=== PATIENT | male | born 1980 | race Caucasian/White ===

== ENCOUNTER 2019-01-28 09:42 | Emergency (ER) | payer SELFPAY ==
[2019-01-28] MEDS ORDERED: Albuterol/Ipratropium 3.0-0.5 MG/3 ML Neb Soln NEB ONE (10:22)
[2019-01-28 10:25] LABS: CHLORIDE,CL 97 mEq/L (98-106); SODIUM,NA 135 mEq/L (136-145)
[2019-01-28] MEDS ORDERED: LORazepam 2 MG/ML Syringe IVPUSH ONE (10:38)
--- NOTE | 2019-01-28 10:38 | EDM.PDOC ---
ED HPI GENERAL MEDICAL PROBLEM - General Chief Complaint: Chest Pain Stated Complaint: CP Time Seen by Provider: 01/28/19 10:06 Source of Information: Reports: Patient History Limitations: Reports: No Limitations - History of Present Illness INITIAL COMMENTS - FREE TEXT/NARRATIVE: This patient is a 38 year old male that presents to the ER. Patient reports that about 1 week ago he began feeling short of breath, so he used his friends inhaler once and it seemed to help that day. Patient reports that yesterday afternoon about 2 pm he was outside mowing grass when he started having chest pain left chest. Patient described it as he feels his heart beating at his rib. He reports the sensation is in his left arm as numbness to the elbow. Patient reports he also continues to feel short of breath. The patient reports that he does drink beer daily. He reports that yesterday he drank a 6 pack of beer while mowing. Patient reports that his amount fluctuates on how much he drinks daily. He said sometimes he gets a little crazy and drinks a lot more. He reports that a good average number of beers he drinks a day is about 15-20 per day. The patient reports that since yesterday he has been a little sweaty. He reports that he generally just does not feel very well. Patient reports today he has been shaky as well and having "[place]". Patient denies grady, dizziness , n, v, d, f. Onset Date: 01/21/19 Duration: Week(s): (1) Location: Reports: Chest Quality: Reports: Other ("feel heart beating") Severity: Mild Improves with: Reports: None Worsens with: Reports: None Associated Symptoms: Reports: Chest Pain, Diaphoresis, Shortness of Breath. Denies: Confusion, Cough, cough w sputum, Fever/Chills, Headaches, Loss of Appetite, Malaise, Nausea/Vomiting, Rash, Seizure, Syncope, Weakness Left Chest Pain Score (Numeric/FACES): 2 - Related Data Allergies Allergy/AdvReac Type Severity Reaction Status Date / Time No Known Allergies Allergy Verified 01/28/19 10:05 Home Meds: Home Meds . [No Known Home Meds] 04/16/14 [History] Past Medical History Oncologic (Cancer) History: Reports: Other (See Below) Other Oncologic History: reports "skin cancer spot" was removed around 2017 - Past Surgical History Musculoskeletal Surgical History: Reports: Other (See Below) Other Musculoskeletal Surgeries/Procedures:: hx fractured ankle Social & Family History - Family History Family Medical History: Noncontributory - Tobacco Use Smoking Status *Q: Current Every Day Smoker Years of Tobacco use: 20 Packs/Tins Daily: 1 - Caffeine Use Caffeine Use: Reports: Coffee - Alcohol Use Days Per Week of Alcohol Use: 7 Number of Drinks Per Day: 15 Total Drinks Per Week: 105 - Recreational Drug Use Recreational Drug Use: Yes Recreational Drug Type: Reports: Marijuana/Hashish Recreational Drug Use Frequency: Weekly ED ROS GENERAL - Review of Systems Review Of Systems: See Below Constitutional: Reports: Malaise, Weakness (generalized), Diaphoresis HEENT: Reports: No Symptoms Respiratory: Reports: Shortness of Breath, Wheezing (patient reports he has had some wheezing the past 1 week. ) Cardiovascular: Reports: Chest Pain, Dyspnea on Exertion, Palpitations ("feel my heart beating"). Denies: Lightheadedness, Syncope Endocrine: Reports: No Symptoms GI/Abdominal: Reports: Abdominal Pain ("for years" no changes. chronic. ). Denies: Constipation, Diarrhea, Nausea, Vomiting : Reports: No Symptoms Musculoskeletal: Reports: No Symptoms Skin: Reports: No Symptoms Neurological: Reports: Tremors, Weakness (generalized, no focal. ). Denies: Confusion, Dizziness, Headache, Seizure, Syncope, Change in Speech, Gait Disturbance Psychiatric: Reports: Anxiety Hematologic/Lymphatic: Reports: No Symptoms Immunologic: Reports: No Symptoms ED EXAM, GENERAL - Physical Exam Exam: See Below Exam Limited By: No Limitations General Appearance: Alert, WD/WN, No Apparent Distress, Anxious Eye Exam: Bilateral Eye: EOMI, Normal Inspection, PERRL Ears: Normal External Exam, Normal Canal, Hearing Grossly Normal, Normal TMs Ear Exam: Bilateral Ear: Auricle Normal, Canal Normal, TM normal Nose: Normal Inspection, Normal Mucosa, No Blood Throat/Mouth: Normal Inspection, Normal Lips, Normal Teeth, Normal Gums, Normal Oropharynx, Normal Voice, No Airway Compromise Head: Atraumatic, Normocephalic Neck: Normal Inspection, Supple, Non-Tender, Full Range of Motion Respiratory/Chest: No Respiratory Distress, Normal Breath Sounds, No Accessory Muscle Use, Chest Non-Tender, Wheezing (mild expiratory wheeze throughout. ) Cardiovascular: Normal Peripheral Pulses, Regular Rate, Rhythm, No Edema, No Gallop, No JVD, No Murmur, No Rub Peripheral Pulses: 2+: Radial (L), Radial (R), Posterior Tibial (L), Posterior Tibial (R) GI/Abdominal: Normal Bowel Sounds, Soft, No Organomegaly, No Distention, No Abnormal Bruit, No Mass, Pelvis Stable, Tender (mild diffuse. Patient states this is been present for years, no changes. ) (Male) Exam: Deferred Rectal (Males) Exam: Deferred Back Exam: Normal Inspection, Full Range of Motion. No: CVA Tenderness (L), CVA Tenderness (R) Extremities: Normal Inspection, Normal Range of Motion, Non-Tender, No Pedal Edema, Normal Capillary Refill Neurological: Alert, Oriented Psychiatric: Normal Affect, Normal Mood Skin Exam: Warm, Dry, Intact, Normal Color, No Rash Lymphatic: No Adenopathy EKG INTERPRETATION EKG Date: 01/28/19 Time: 09:50 Rhythm: NSR ST-T: Depressed (minimal) Course - Vital Signs Last Recorded V/S: Last Vital Signs Temp 98.2 F 01/28/19 12:30 Pulse 87 01/28/19 12:30 Resp 18 01/28/19 12:30 BP 112/64 01/28/19 12:30 Pulse Ox 96 01/28/19 12:30 - Orders/Labs/Meds Orders: Active Orders 24 hr Category Date Time Status RT Aerosol Therapy [RC] ASDIRECTED Care 01/28/19 10:22 Active Ang Chest [CT] Stat Exams 01/28/19 11:02 Taken Chest 2V [CR] Routine Exams 01/28/19 Taken MVI, Adult with Vitamin K [Infuvite Adult] 10 ml Med 01/28/19 10:59 Active Folic Acid 1 mg Thiamine [Vitamin B-1] 100 mg Magnesium Sulfate [Magnesium Sulfate 50%] 2 gm Dextrose 5 %-0.2 % NaCl 1,000 ml IV ONETIME Medication Orders Multivitamins/Minerals 10 ml/Folic Acid 1 mg/ Thiamine HCl 100 mg/ Magnesium Sulfate 2 gm / Dextrose/Sodium Chloride 1,015.2 mls @ 500 mls/hr IV ONETIME ONE Stop: 01/28/19 12:59 Last Admin: 01/28/19 10:56 Dose: 500 mls/hr Labs: Laboratory Tests 01/28/19 01/28/19 01/28/19 Range/Units 10:03 10:03 10:03 WBC 6.1 (5.0-10.0) 10^3/uL RBC 4.84 (4.50-6.00) 10^6/uL Hgb 17.0 (14.0-18.0) g/dL Hct 48.2 (40.0-54.0) % MCV 99.6 H (82.0-94.0) fL MCH 35.1 H (27.0-32.0) pg MCHC 35.3 (33.0-38.0) g/dL RDW Coeff of Marily 12.5 (11.0-15.0) % Plt Count 213 (150-400) 10^3/uL Neut % (Auto) 71.2 (35-85) % Lymph % (Auto) 18.6 (10-55) % [place] % (Auto) 9.4 (0-16) % Eos % (Auto) 0.5 (0-5) % Baso % (Auto) 0.3 (0-3) % Neut # (Auto) 4.32 (1.80-7.00) 10^3/uL Lymph # (Auto) 1.13 (1.00-4.80) 10^3/uL [place] # (Auto) 0.57 (0.00-0.80) 10^3/uL Eos # (Auto) 0.03 (0.00-0.45) 10^3/uL Baso # (Auto) 0.02 10^3/uL PT 9.4 L (9.7-12.3) SEC INR 0.91 L (0.92-1.18) APTT 26.6 (23.2-32.3) SEC D-Dimer, Quantitative (0.00-0.50) Sodium 135 L (136-145) mEq/L Potassium 4.0 (3.5-5.0) mEq/L Chloride 97 L (98-106) mEq/L Carbon Dioxide 22 (21-32) mmol/L BUN 13 (7-18) mg/dL Creatinine 1.0 (0.7-1.3) mg/dL Est Cr Clr Drug Dosing 108.86 mL/min Estimated GFR (MDRD) > 60 (>=60) mL/min Glucose 161 H D (75-99) mg/dL Calcium 9.6 (8.4-10.1) mg/dL Total Bilirubin 3.1 H (0.0-1.0) mg/dL AST 56 H (15-37) U/L ALT 138 H (12-78) U/L Alkaline Phosphatase 92 (46-116) U/L Lactate Dehydrogenase 146 (100-190) U/L Creatine Kinase 109 (35-232) U/L Troponin I < 0.017 (0.00-0.06) ng/mL NT-Pro-B Natriuret Pep (0-1000) pg/mL Total Protein 7.8 (6.4-8.2) g/dL Albumin 4.0 (3.4-5.0) g/dL 01/28/19 01/28/19 01/28/19 Range/Units 10:28 10:30 12:11 WBC (5.0-10.0) 10^3/uL RBC (4.50-6.00) 10^6/uL Hgb (14.0-18.0) g/dL Hct (40.0-54.0) % MCV (82.0-94.0) fL MCH (27.0-32.0) pg MCHC (33.0-38.0) g/dL RDW Coeff of Marily (11.0-15.0) % Plt Count (150-400) 10^3/uL Neut % (Auto) (35-85) % Lymph % (Auto) (10-55) % [place] % (Auto) (0-16) % Eos % (Auto) (0-5) % Baso % (Auto) (0-3) % Neut # (Auto) (1.80-7.00) 10^3/uL Lymph # (Auto) (1.00-4.80) 10^3/uL [place] # (Auto) (0.00-0.80) 10^3/uL Eos # (Auto) (0.00-0.45) 10^3/uL Baso # (Auto) 10^3/uL PT (9.7-12.3) SEC INR (0.92-1.18) APTT (23.2-32.3) SEC D-Dimer, Quantitative 0.73 H (0.00-0.50) Sodium (136-145) mEq/L Potassium (3.5-5.0) mEq/L Chloride (98-106) mEq/L Carbon Dioxide (21-32) mmol/L BUN (7-18) mg/dL Creatinine (0.7-1.3) mg/dL Est Cr Clr Drug Dosing mL/min Estimated GFR (MDRD) (>=60) mL/min Glucose (75-99) mg/dL Calcium (8.4-10.1) mg/dL Total Bilirubin (0.0-1.0) mg/dL AST (15-37) U/L ALT (12-78) U/L Alkaline Phosphatase (46-116) U/L Lactate Dehydrogenase (100-190) U/L Creatine Kinase (35-232) U/L Troponin I < 0.017 (0.00-0.06) ng/mL NT-Pro-B Natriuret Pep 63 (0-1000) pg/mL Total Protein (6.4-8.2) g/dL Albumin (3.4-5.0) g/dL Meds: Medications Generic Name Dose Route Start Last Admin Trade Name Freq PRN Reason Stop Dose Admin Multivitamins/Minerals 10 ml/ 1,015.2 mls @ 500 mls/hr 01/28/19 10:59 10:56 Folic Acid 1 mg/ Thiamine HCl IV 01/28/19 12:59 500 mls/hr 100 mg/ Magnesium Sulfate 2 gm ONETIME ONE Administration / Dextrose/Sodium Chloride Discontinued Medications Generic Name Dose Route Start Last Admin Trade Name Freq PRN Reason Stop Dose Admin Albuterol/Ipratropium 3 ml 01/28/19 10:22 01/28/19 10:22 Duoneb 3.0-0.5 Mg/3 Ml NEB 01/28/19 10:23 3 ml ONETIME ONE Administration Multivitamins/Minerals 10 ml/ 1,015.2 mls @ 500 mls/hr 01/28/19 10:38 12:28 Folic Acid 1 mg/ Thiamine HCl IV 01/28/19 12:39 Not Given 100 mg/ Magnesium Sulfate 2 gm ONETIME ONE / Sodium Chloride Iopamidol 100 ml 01/28/19 11:08 01/28/19 11:42 Isovue-370 (76%) IVPUSH 01/28/19 11:09 100 ml ONETIME ONE Administration Lorazepam 1 mg 01/28/19 10:38 01/28/19 10:46 Ativan IVPUSH 01/28/19 10:39 1 mg ONETIME ONE Administration - Radiology Interpretation Free Text/Narrative:: CXR: COPD, no infiltrates, no cardiac enlargement CT angio chest: Lungs clear with hyperinflation. No PEs. Liver possible fatty liver with no lesions. - Re-Assessments/Exams Free Text/Narrative Re-Assessment/Exam: 01/28/19 11:47 Patient reports that the breathing treatment did help him with his shortness of breath. He reports he had a cough with the tx, but cant get anything up. 01/28/19 12:47 The patient reports that he feels great. He says his pain has resolved and no longer feels short of breath. He reports he is ready to go home. Discussed with the patient his smoking and drinking. His liver and his possible COPD. Earlier the patient was trying to be seen in the clinic. We discussed him establishing back with primary care and discussing his smoking, drinking, and COPD much more. He reports he would still like to follow-up for this. So, I made him an appointment for today at 2pm in the clinic to have this done. Departure - Departure Time of Disposition: 12:49 Disposition: Home, Self-Care 01 Condition: Fair Clinical Impression: Chest pain, atypical, Alcoholism /alcohol abuse, Anxiety, Dehydration, Fatty liver COPD (chronic obstructive pulmonary disease) Qualifiers: COPD type: chronic bronchitis Chronic bronchitis type: simple Qualified Code(s) : J41.0 - Simple chronic bronchitis Instructions: Alcohol Use Disorder, Dehydration, Adult, [id number], Nonspecific Chest Pain, [id number] Forms: ED Department Discharge Additional Instructions: Followup with the clinic today at 2pm Return to the ER for worsening of condition or any emergent concerns Increase fluids Decrease alcohol and tobacco use Rest - My Orders Last 24 Hours: My Active Orders 01/28/19 Chest 2V [CR] Routine 01/28/19 10:22 RT Aerosol Therapy [RC] ASDIRECTED 01/28/19 10:59 MVI, Adult with Vitamin K [Infuvite Adult] 10 ml Folic Acid 1 mg Thiamine [ Vitamin B-1] 100 mg Magnesium Sulfate [Magnesium Sulfate 50%] 2 gm Dextrose 5 %-0.2 % NaCl 1,000 ml IV ONETIME 01/28/19 11:02 Ang Chest [CT] Stat - Assessment/Plan Last 24 Hours: My Active Orders 01/28/19 Chest 2V [CR] Routine 01/28/19 10:22 RT Aerosol Therapy [RC] ASDIRECTED 01/28/19 10:59 MVI, Adult with Vitamin K [Infuvite Adult] 10 ml Folic Acid 1 mg Thiamine [ Vitamin B-1] 100 mg Magnesium Sulfate [Magnesium Sulfate 50%] 2 gm Dextrose 5 %-0.2 % NaCl 1,000 ml IV ONETIME 01/28/19 11:02 Ang Chest [CT] Stat Plan: PLEASE SEE RN NOTE FOR PFSH.
[2019-01-28] MEDS: MVI, Adult with Vitamin K 10 ML, Folic Acid 1 MG, Thiamine 100 MG, Magnesium Sulfate 2 ... IV ONE ×10 (10:56→12:28)
[2019-01-28] MEDS ORDERED: MVI, Adult with Vitamin K 10 ML, Folic Acid 1 MG, Thiamine 100 MG, Magnesium Sulfate 2 ... IV ONE ×5 (10:59)
[2019-01-28] MEDS ORDERED: Iopamidol 755 Mg/ML 100 ML Bottle IVPUSH ONE (11:08)
[2019-01-28 13:06] VITALS: BP 111/65
== END 2019-01-28 13:15 | disposition home or self-care (01) ==
LOC: CC.ED 09:42
DX: J41.0 Simple chronic bronchitis (principal); F41.9 Anxiety disorder, unspecified; E86.0 Dehydration; F10.20 Alcohol dependence, uncomplicated; K76.0 Fatty (change of) liver, not elsewhere classified; F17.210 Nicotine dependence, cigarettes, uncomplicated
CPT/HCPCS: 36415; 71046; 71275; 80053; 82550; 83615; 83880; 84484; 85025; 85379; 85610; 85730; 93005; 94640; 96365; 96366; 96375; 99285-25; J2060; J3411; J3475; J3490; J7030; J7620-GY; Q9967